=== PATIENT | female | born 2000 | race Two or more races ===

== ENCOUNTER 2024-04-06 12:20 | Emergency (ER) | payer OTHER ==
[~2024-04-06] VITALS: Ht 160 cm; Wt 62.0 kg
[2024-04-06 12:25] VITALS: BP 129/85; PULSE 74; RESP 18; TEMP 98.2; O2SAT 100
[2024-04-06] MEDS ORDERED: ACETAMINOPHEN 325MG TABLET PO ONE (12:45)
[2024-04-06] MEDS ORDERED: KETOROLAC 30MG/ML VIAL IM ONE (12:45)
[2024-04-06 14:36] LABS: BASOPHILS % 0.4 % (0.0-2.0); DIFFERENTIAL COMMENT 0; EOSINOPHILS % 0.4 % (0.0-5.0); HEMATOCRIT. 38.3 % (36.0-48.0); HEMOGLOBIN. 12.4 g/dL (12.0-16.0); LYMPHOCYTES % 13.7 % (20.0-50.0); MEAN CORPUSCULAR HEMOGLOBIN 25.5 pg (28.0-32.0); MEAN CORPUSCULAR HGB CONC 32.3 g/dL (31.0-37.0); MEAN CORPUSCULAR VOLUME 78.8 fL (81.0-99.0); MEAN PLATELET VOLUME 8.5 fl (7.4-10.4); MONOCYTES % 7.7 % (2.0-8.0); NEUTROPHILS % 77.8 % (40.0-76.0); PLATELET 448 x1000/uL (130-400); RED BLOOD CELL COUNT 4.86 mill/uL (4.2-5.4); WHITE BLOOD COUNT 12.2 x1000/uL (4.5-11.0)
[2024-04-06 14:48] LABS: CHLORIDE 107 mEq/L (98-107); POTASSIUM 3.7 mEq/L (3.5-5.1); SODIUM 142 mEq/L (136-145)
[2024-04-06 14:49] LABS: CALCIUM 9.8 mg/dL (8.7-10.4); CARBON DIOXIDE 27 mEq/L (21-32)
[2024-04-06 14:54] LABS: CREATININE 0.8 mg/dL (0.6-1.0); GLUCOSE 91 mg/dL (70-105); UREA NITROGEN BLOOD 15 mg/dL (9-23)
[2024-04-06 14:56] LABS: ALANINE AMINOTRANSFERASE 13 IU/L (10-49); ALBUMIN 4.9 g/dL (3.2-4.8); ASPARTATE AMINOTRANSFERASE 23 IU/L (<34); BILIRUBIN TOTAL 0.6 mg/dL (0.1-1.0); PROTEIN TOTAL 8.1 g/dL (6.0-8.3)
[2024-04-06] MEDS: VENLAFAXINE HCL 37.5MG SR CAPSULE 24HR PO ONE (14:58)
[2024-04-06] MEDS: GABAPENTIN 100MG CAPSULE PO ONE (14:59)
[2024-04-06] MEDS: CLONAZEPAM 0.5MG TABLET PO ONE (14:59)
[2024-04-06] MEDS: ACETAMINOPHEN 325MG TABLET PO NR (15:00)
[2024-04-06] MEDS: KETOROLAC 30MG/ML VIAL IM NR (15:01)
== END 2024-04-06 13:28 | disposition left against medical advice (07) ==
LOC: ER 12:34 → EDBEDREQ 13:58
DX: M25.512 Pain in left shoulder (principal); F32.A Depression, unspecified; F41.9 Anxiety disorder, unspecified; F43.10 Post-traumatic stress disorder, unspecified
CPT/HCPCS: 80053; 81025; 85025; 36415; 73030; 70450; 96372; 99285; J1885; Z7610

== ENCOUNTER 2024-04-13 16:24 | Emergency (ER) | payer SELFPAY ==
[~2024-04-13] VITALS: Ht 162.6 cm; Wt 60.0 kg
[2024-04-13 16:29] VITALS: O2SAT 100
[2024-04-13] MEDS: LORAZEPAM 2MG/ML INJ IM ONE (17:57)
[2024-04-13] MEDS: DIPHENHYDRAMINE 50MG/ML VIAL IM ONE (17:58)
[2024-04-13] MEDS: HALOPERIDOL LACTATE 5MG/ML VIAL IM ONE (17:58)
[2024-04-13 18:05] LABS: CLARITY URINE CLOUDY (CLEAR); COLOR URINE YELLOW (YELLOW); GLUCOSE URINE NEGATIVE (NEGATIVE); KETONES URINE NEGATIVE (NEGATIVE); LEUKOCYTE ESTERASE URINE NEGATIVE (NEGATIVE); NITRITE URINE NEGATIVE (NEGATIVE); OCCULT BLOOD URINE TRACE (NEGATIVE); PROTEIN URINE NEGATIVE (NEGATIVE); SPECIFIC GRAVITY URINE 1.004 (1.005-1.030); UROBILINOGEN URINE 0.2 E.U./dL (0.2-1.0)
[2024-04-13 18:24] LABS: *AMPHETAMINES SCREEN URINE NEGATIVE (NEGATIVE)
[2024-04-13 18:25] LABS: BASOPHILS % 0.3 % (0.0-2.0); CARBON DIOXIDE 26 mEq/L (21-32); CHLORIDE 107 mEq/L (98-107); HEMATOCRIT. 36.5 % (36.0-48.0); HEMOGLOBIN. 11.7 g/dL (12.0-16.0); LYMPHOCYTES % 22.5 % (20.0-50.0); MEAN CORPUSCULAR HGB CONC 32.2 g/dL (31.0-37.0); MEAN CORPUSCULAR VOLUME 80.8 fL (81.0-99.0); MEAN PLATELET VOLUME 8.7 fl (7.4-10.4); MONOCYTES % 8.1 % (2.0-8.0); NEUTROPHILS % 66.1 % (40.0-76.0); PLATELET 423 x1000/uL (130-400); POTASSIUM 3.6 mEq/L (3.5-5.1); RED BLOOD CELL COUNT 4.51 mill/uL (4.2-5.4); RED CELL DISTRIBUTION WIDTH 17.4 % (11.6-14.6); SODIUM 142 mEq/L (136-145); WHITE BLOOD COUNT 7.7 x1000/uL (4.5-11.0)
[2024-04-13 18:25] LABS: *BARBITURATES SCREEN URINE NEGATIVE (NEGATIVE); *BENZODIAZEPINES SCREEN URINE PRESUMPTIVE POSITIVE (NEGATIVE); *COCAINE SCREEN URINE NEGATIVE (NEGATIVE); CANNABINOID URINE SCREEN PRESUMPTIVE POSITIVE (NEGATIVE); ECSTASY MDMA SCREEN URINE NEGATIVE (NEGATIVE); METHADONE URINE SCREEN NEGATIVE (NEGATIVE); OPIATES URINE SCREEN NEGATIVE (NEGATIVE); PHENCYCLIDINE URINE SCREEN NEGATIVE (NEGATIVE)
[2024-04-13 18:26] LABS: CALCIUM 9.9 mg/dL (8.7-10.4)
[2024-04-13 18:30] LABS: RBC URINE 0-2 /hpf (0-2); SQUAMOUS EPITHELIAL CELL URINE 2+ /lpf (RARE/1+); WBC URINE 0-2 /hpf (0-2)
[2024-04-13 18:30] LABS: CREATININE 0.8 mg/dL (0.6-1.0)
[2024-04-13 18:31] LABS: GLUCOSE 84 mg/dL (70-105); UREA NITROGEN BLOOD 8 mg/dL (9-23)
[2024-04-13 18:31] LABS: BACTERIA URINE 2+; YEAST URINE NONE SEEN
[2024-04-13 18:32] LABS: ETHANOL BLOOD < 10 mg/dL (<10)
[2024-04-13 18:33] LABS: ACETAMINOPHEN < 2 ug/mL (10-30)
[2024-04-13 18:35] LABS: HCG SCREEN NEGATIVE
[2024-04-14 08:04] VITALS: BP 113/73; PULSE 76; RESP 16; TEMP 36.61404; O2SAT 100
== END 2024-04-14 08:19 | disposition home or self-care (01) ==
LOC: ER 16:24
DX: S00.03XA Contusion of scalp, initial encounter (principal); F31.9 Bipolar disorder, unspecified; F41.9 Anxiety disorder, unspecified; F19.90 Other psychoactive substance use, unspecified, uncomplicated; F17.200 Nicotine dependence, unspecified, uncomplicated; Z20.822 Contact with and (suspected) exposure to COVID-19; Z79.899 Other long term (current) drug therapy; X58.XXXA Exposure to other specified factors, initial encounter; Y93.89 Activity, other specified; Y92.89 Other specified places as the place of occurrence of the external cause; Y99.8 Other external cause status
CPT/HCPCS: 80305; 80048; 81003; 80307; 80329; 80320; 84703; 85025; 36415; 70450; 93005; 96372; 99285; 87426; J1200; J1630; J2060; G0480